=== PATIENT | male | born 1975 | race Hispanic/Latino ===

== ENCOUNTER 2020-07-20 03:18 | Inpatient (IN) | payer OTHER ==
[2020-07-20] VITALS (26 sets, daily range): BP systolic 115–168; BP diastolic 62–105
[~2020-07-20] VITALS: Ht 180.3 cm; Wt 129.3 kg
[2020-07-20] MEDS ORDERED: PANTOPRAZOLE 40 MG/VIAL IVP SCH (04:00)
[2020-07-20] MEDS ORDERED: PROCHLORPERAZINE EDISYLATE 10 MG/2 ML VIAL IVP SCH (04:00)
[2020-07-20] MEDS ORDERED: ONDANSETRON HCL 4 MG/2 ML VIAL IVP SCH (04:00)
[2020-07-20 04:11] LABS: APPEARANCE,URINE Clear (CLEAR); BILIRUBIN,URINE Negative (NEGATIVE); COLOR,URINE Yellow (YELLOW); GLUCOSE, URINE (UA) Negative (NEGATIVE); KETONES,URINE Negative (NEGATIVE); LEUKOCYTE ESTERASE ,URINE Trace (NEGATIVE); NITRATE,URINE Negative (NEGATIVE); OCCULT BLOOD,URINE Negative (NEGATIVE); PROTEIN,URINE Negative (NEGATIVE); UROBILINOGEN,URINE 0.2 mg/dL (0.2-1.0)
[2020-07-20 04:18] LABS: BASOPHILS % (AUTO) 0.3 % (0.0-5.0); EOSINOPHILS % (AUTO) 1.8 % (0.0-8.0); HEMATOCRIT 46.9 % (42-54); LYMPHOCYTES % (AUTO) 17.3 % (21.0-51.0); MEAN CORPUSCULAR HEMOGLOBIN 30.2 pg (27.0-33.0); MEAN CORPUSCULAR HGB CONC 33.5 g/dL (32.0-36.0); MEAN CORPUSCULAR VOLUME 90.2 fL (79-99); MONOCYTES % (AUTO) 5.3 % (3.0-13.0); NEUTROPHILS % (AUTO) 74.8 % (40.0-77.0); PLATELET COUNT (AUTO) 272 K/uL (130-400); RED CELL DISTRIBUTION WIDTH 12.9 % (11.0-15.5); WHITE BLOOD COUNT (AUTO) 12.9 K/uL (4.8-10.8)
[2020-07-20 04:27] LABS: CREATININE 0.8 mg/dL (0.5-1.5); POTASSIUM 3.7 mmol/L (3.5-5.1)
[2020-07-20 04:31] LABS: BILIRUBIN,TOTAL 0.7 mg/dL (0.2-1.0)
[2020-07-20] MEDS: LACTATED RINGERS 1000ML 1,000 ML IV SCH ×2 (04:32→18:30)
[2020-07-20 04:33] LABS: BACTERIA,URINE Rare /HPF (None Seen); RBC,URINE 0-1 /HPF (0-1); SQUAMOUS EPITHELIAL CELL,UR 0-2 /HPF (0-2)
[2020-07-20] MEDS ORDERED: IOHEXOL 350 MG/ML 100ML INFUS..BTL IV ONE (05:57)
[2020-07-20] MEDS ORDERED: ZOSYN 3.375GM+NS 50ML 50 ML IV SCH (06:45)
[2020-07-20] MEDS ORDERED: SODIUM CHLORIDE 0.9% 100 ML IV ONE (06:54)
[2020-07-20] MEDS: MORPHINE 2 MG SYG (2MG/1ML) IVP SCH ×2 (07:06→16:16)
[2020-07-20] MEDS: SODIUM CHLORIDE 0.9% 1000ML 1,000 ML IV SCH ×3 (07:15→21:35)
[2020-07-20] MEDS ORDERED: LACTULOSE 20 GM/30 ML UDCUP PO PRN (07:15)
[2020-07-20] MEDS ORDERED: ONDANSETRON HCL 4 MG/2 ML VIAL IV PRN (07:15)
[2020-07-20] MEDS ORDERED: ACETAMINOPHEN 325 MG TAB PO PRN ×2 (07:15)
[2020-07-20] MEDS ORDERED: ENOXAPARIN SODIUM 40 MG/0.4 ML SYRINGE SQ SCH (09:00)
[2020-07-20] MEDS: FAMOTIDINE/PF 20 MG/2 ML VIAL IV SCH ×2 (09:00→19:59)
[2020-07-20] MEDS ORDERED: SODIUM CHLORIDE 0.9% 1000ML 1,000 ML IV ONE (09:48)
[2020-07-20] MEDS: MORPHINE 2 MG SYG (2MG/1ML) IV PRN ×3 (11:38→20:17)
[2020-07-20] MEDS: ZOSYN 3.375GM+NS 50ML 50 ML IV SCH ×2 (16:12→21:35)
[2020-07-20] MEDS ORDERED: SUCCINYLCHOLINE CHLORIDE 20 MG/ML 10 ML VIAL ONE (17:13)
[2020-07-20] MEDS ORDERED: DEXAMETHASONE SOD PHOSPHATE 10MG/ML 1ML VIAL ONE (17:13)
[2020-07-20] MEDS ORDERED: LIDOCAINE PF 100MG/5ML (2%) SYRINGE 5ML ONE (17:13)
[2020-07-20] MEDS ORDERED: ONDANSETRON HCL 4 MG/2 ML VIAL ONE (17:16)
[2020-07-20] MEDS ORDERED: MIDAZOLAM HCL 1 MG/ML 2ML VIAL ONE (17:16)
[2020-07-20] MEDS ORDERED: PROPOFOL 10 MG/ML 20ML VIAL IV ONE (17:17)
[2020-07-20] MEDS ORDERED: ROCURONIUM 10MG/1ML SYR 10 MG/ML ML ONE (17:17)
[2020-07-20] MEDS ORDERED: NEOSTIGMINE 5MG/5ML SYR IV ONE (17:17)
[2020-07-20] MEDS ORDERED: GLYCOPYRROLATE 1 MG/5 ML SYRINGE ONE (17:17)
[2020-07-20] MEDS ORDERED: FENTANYL CITRATE PF 50 MCG/1 ML 2ML VIAL ONE ×2 (17:18→17:46)
[2020-07-20] MEDS ORDERED: BUPIVACAINE/PF 0.5% 30ML VIAL ONE (18:01)
[2020-07-20] MEDS ORDERED: MORPHINE 4 MG SYG (4MG/1ML) IV PRN (21:30)
[2020-07-21] MEDS: MORPHINE 2 MG SYG (2MG/1ML) IV PRN (03:10)
[2020-07-21 04:00] VITALS: BP 118/69
[2020-07-21] MEDS: ZOSYN 3.375GM+NS 50ML 50 ML IV SCH (05:00)
[2020-07-21 05:25] LABS: BASOPHILS % (AUTO) 0.1 % (0.0-5.0); EOSINOPHILS % (AUTO) 1.9 % (0.0-8.0); HEMATOCRIT 44.5 % (42-54); LYMPHOCYTES % (AUTO) 11.4 % (21.0-51.0); MEAN CORPUSCULAR HEMOGLOBIN 29.6 pg (27.0-33.0); MEAN CORPUSCULAR HGB CONC 32.4 g/dL (32.0-36.0); MEAN CORPUSCULAR VOLUME 91.6 fL (79-99); MONOCYTES % (AUTO) 2.8 % (3.0-13.0); NEUTROPHILS % (AUTO) 83.4 % (40.0-77.0); PLATELET COUNT (AUTO) 245 K/uL (130-400); RED BLOOD CELL COUNT(AUTO) 4.86 MIL/uL (4.50-6.20); WHITE BLOOD COUNT (AUTO) 9.8 K/uL (4.8-10.8)
[2020-07-21 05:44] LABS: CREATININE 0.8 mg/dL (0.5-1.5)
[2020-07-21 08:20] VITALS: BP 122/75
[2020-07-21] MEDS ORDERED: ASPIRIN 325 MG TABLET PO SCH (09:00)
[2020-07-21 11:29] VITALS: BP 133/77
== END 2020-07-21 13:45 | disposition home or self-care (01) | DRG 343 ==
LOC: EDH 03:18 → EDHIP 07:14 → 3AH 10:55
PROVIDERS: ADMIT Internal Medicine; ATTEND Internal Medicine
PROC: 0DTJ4ZZ Resection of Appendix, Percutaneous Endoscopic Approach (ICD-10-PCS; principal; 2020-07-20 13:45)
DX: K35.80 Unspecified acute appendicitis (principal); I10 Essential (primary) hypertension; D72.829 Elevated white blood cell count, unspecified
CPT/HCPCS: 36415; 74177; 80048; 80053; 81001; 83690; 84484; 85025; A4344; C9113; G0378; J0330; J0780; J1100; J1650; J2001; J2250; J2405; J2543; J2704; J2710; J3010; J3490; J7030; J7120; Q9967

== ENCOUNTER → 2020-07-22 | Outpatient (CLI) | payer OTHER ==
[2020-07-22 11:49] LABS: BASOPHILS % (AUTO) 0.2 % (0.0-5.0); EOSINOPHILS % (AUTO) 0.8 % (0.0-8.0); HEMATOCRIT 46.5 % (42-54); LYMPHOCYTES % (AUTO) 38.5 % (21.0-51.0); MEAN CORPUSCULAR HEMOGLOBIN 30.3 pg (27.0-33.0); MEAN CORPUSCULAR HGB CONC 32.9 g/dL (32.0-36.0); MEAN CORPUSCULAR VOLUME 92.1 fL (79-99); MONOCYTES % (AUTO) 6.7 % (3.0-13.0); NEUTROPHILS % (AUTO) 53.4 % (40.0-77.0); PLATELET COUNT (AUTO) 264 K/uL (130-400); RED BLOOD CELL COUNT(AUTO) 5.05 MIL/uL (4.50-6.20); RED CELL DISTRIBUTION WIDTH 13.4 % (11.0-15.5); WHITE BLOOD COUNT (AUTO) 9.8 K/uL (4.8-10.8)
[2020-07-22 11:56] LABS: HEMOGLOBIN A1C 6.3 % (4.0-6.0)
[2020-07-22 13:00] LABS: ALBUMIN 3.8 g/dL (3.5-5.0); BILIRUBIN,TOTAL 0.6 mg/dL (0.2-1.0); CREATININE 0.9 mg/dL (0.5-1.5); POTASSIUM 3.9 mmol/L (3.5-5.1); TOTAL PROTEIN, SERUM 7.8 g/dL (6.0-8.3)
== END | disposition home or self-care (01) ==
LOC: LAB 10:57
PROVIDERS: ATTEND Family Medicine
DX: I10 Essential (primary) hypertension (principal)
CPT/HCPCS: 36415; 80053; 80061; 82043; 83036; 85025

== ENCOUNTER → 2021-06-23 | Outpatient (CLI) | payer OTHER ==
[2021-06-23 08:26] LABS: BASOPHILS % (AUTO) 0.4 % (0.0-5.0); EOSINOPHILS % (AUTO) 3.1 % (0.0-8.0); HEMATOCRIT 48.7 % (42-54); MEAN CORPUSCULAR HEMOGLOBIN 28.8 pg (27.0-33.0); MEAN CORPUSCULAR HGB CONC 31.8 g/dL (32.0-36.0); MEAN CORPUSCULAR VOLUME 90.5 fL (79-99); MONOCYTES % (AUTO) 6.7 % (3.0-13.0); NEUTROPHILS % (AUTO) 50.7 % (40.0-77.0); PLATELET COUNT (AUTO) 227 K/uL (130-400); RED BLOOD CELL COUNT(AUTO) 5.38 MIL/uL (4.50-6.20); RED CELL DISTRIBUTION WIDTH 13.2 % (11.0-15.5)
[2021-06-23 08:56] LABS: ALBUMIN 3.6 g/dL (3.5-5.0); BILIRUBIN,TOTAL 0.7 mg/dL (0.2-1.0); CREATININE 0.7 mg/dL (0.5-1.5); THYROID STIMULATING HORMONE 2.23 uIU/mL (0.36-3.74); TOTAL PROTEIN, SERUM 7.5 g/dL (6.0-8.3)
== END | disposition home or self-care (01) ==
LOC: LAB 10:00
PROVIDERS: ATTEND Family Medicine
DX: I10 Essential (primary) hypertension (principal); R73.03 Prediabetes
CPT/HCPCS: 36415; 80053; 80061; 83036; 84443; 85025

== ENCOUNTER → 2023-03-14 | Outpatient (CLI) | payer OTHER ==
[2023-03-14 12:23] LABS: BASOPHILS # (AUTO) 0.04 K/uL (0.00-0.20); BASOPHILS % (AUTO) 0.3 % (0.0-5.0); EOSINOPHILS # (AUTO) 0.19 K/uL (0.00-0.70); EOSINOPHILS % (AUTO) 1.6 % (0.0-8.0); HEMATOCRIT 49.1 % (42-54); IMMATURE GRANULOCYTE ABSOLUTE 0.04 K/uL (0-1); LYMPHOCYTES # (AUTO) 5.5 K/uL (1.0-4.8); LYMPHOCYTES % (AUTO) 46.9 % (21.0-51.0); MEAN CORPUSCULAR HEMOGLOBIN 30.1 pg (27.0-33.0); MEAN CORPUSCULAR VOLUME 91.1 fL (79-99); MONOCYTES # (AUTO) 0.9 K/uL (0.1-1.0); MONOCYTES % (AUTO) 7.3 % (3.0-13.0); NEUTROPHILS # (AUTO) 5.1 K/uL (1.8-7.7); NEUTROPHILS % (AUTO) 43.6 % (40.0-77.0); PLATELET COUNT (AUTO) 261 K/uL (130-400); RED BLOOD CELL COUNT(AUTO) 5.39 MIL/uL (4.50-6.20); RED CELL DISTRIBUTION WIDTH 13.2 % (11.0-15.5); WHITE BLOOD COUNT (AUTO) 11.6 K/uL (4.8-10.8)
[2023-03-14 12:32] LABS: HEMOGLOBIN A1C 6.4 % (4.0-6.0)
[2023-03-14 12:35] LABS: APPEARANCE,URINE CLEAR (CLEAR); BILIRUBIN,URINE NEGATIVE (NEGATIVE); COLOR,URINE LIGHT-YELLOW (YELLOW); GLUCOSE, URINE (UA) NEGATIVE (NEGATIVE); KETONES,URINE NEGATIVE (NEGATIVE); LEUKOCYTE ESTERASE ,URINE NEGATIVE Leu/uL (NEGATIVE); NITRATE,URINE NEGATIVE (NEGATIVE); OCCULT BLOOD,URINE NEGATIVE (NEGATIVE); PROTEIN,URINE NEGATIVE (NEGATIVE); UROBILINOGEN,URINE 0.2 mg/dL (0.2-1.0)
[2023-03-14 12:37] LABS: ADD UA MICROSCOPIC NO
[2023-03-14 12:57] LABS: ALBUMIN 3.9 g/dL (3.5-5.0); BILIRUBIN,TOTAL 0.7 mg/dL (0.2-1.0); CREATININE 0.7 mg/dL (0.5-1.5); POTASSIUM 3.5 mmol/L (3.5-5.1); THYROID STIMULATING HORMONE 1.75 uIU/mL (0.36-3.74)
[2023-03-14 13:38] LABS: LYMPHOCYTES % (MANUAL) 48 % (22-44); MONOCYTES % (MANUAL) 8 % (2-9); SEGMENTED NEUTROPHILS % 44 % (40-70); TOTAL CELLS COUNTED 100
[2023-03-14 13:39] LABS: MAN.DIFF COMMENT-IMPRESSION MANUAL DIFFERENTIAL; PLATELET MORPHOLOGY COMMENT ADEQUATE; WBC MORPHOLOGY NORMAL
== END | disposition home or self-care (01) ==
LOC: LAB 11:38
PROVIDERS: ATTEND Family Medicine
DX: I10 Essential (primary) hypertension (principal); R73.03 Prediabetes
CPT/HCPCS: 36415; 80053; 80061; 81003; 82043; 82570; 83036; 84443; 85025

== ENCOUNTER 2024-02-26 17:55 | Emergency (ER) | payer OTHER ==
[~2024-02-26] VITALS: Ht 177.8 cm; Wt 136.1 kg
--- NOTE | 2024-02-26 18:39 | ERN ---
ED Note History of Present Illness Stated Complaint: WOUND CARE, ABDOMINAL PAIN Chief Complaint: Abdominal Pain Time Seen by MD: 17:56 Time Seen by Midlevel: 17:56 Dictation: The patient is a 48-year-old male with history of appendectomy who presents to the emergency department with complaints of periumbilical pain onset 3:00 p.m.. Patient reports pain is worse with movement. Reports heart mass to periumbilical area. Denies any nausea, vomiting, diarrhea, fevers, constipation. Last bowel movement was a this morning. Allergies: Coded Allergies: No Known Drug Allergies (Unverified Allergy, Unknown, 07/20/20) Home Meds No Active Prescriptions or Reported Meds Past Medical History Past Medical History: High Cholesterol, Hypertension Additional Past Medical Hx: HYPERTENSION Surgical History: Appendectomy Social History: Smokers, ETOH RN Note Reviewed/Agreed w/PFSH: Yes Review of System Dictation Constitutional: Negative for fever,chills, and weight loss Eyes: Negative for injury, pain,redness, and discharge ENT: Negative for injury,pain or swelling Cardiovascular: Negative for chest pain, palpitations, and edema Respiratory: Negative for shortness of breath, cough, and wheezing, Abdomen/GI: Negative for nausea, vomiting, diarrhea, and constipation positive for abdominal pain Back: Negative for injury and pain : Negative for injury, bleeding and discharge MS/Extremity: Negative for injury and deformity Skin: Negative for rash, and discoloration Neuro: Negative for headache, weakness, numbness, tingling, and seizure Psych: Negative for suicide ideation, homicidal ideation, and hallucinations Initial Vital Sign VS Vital Signs Date Time Temp Pulse Resp B/P (MAP) Pulse Ox O2 Delivery O2 Flow Rate FiO2 02/26/24 18:27 99.0 110 20 156/97 96 Room Air 0 Physical Exam Dictation Vital Signs reviewed General Appearance: Alert, oriented x 3, no acute distress, well developed, nourished. Head and Face: non-traumatic. Eyes: PERRL, pink conjunctivas, eyelid no trauma, anterior chamber with arcus senilis. Ears: Pinnas intact and no signs of trauma or erythema ear canals clear and no discharge TM no erythema Nose: No discharge, no bleeding. Oropharynx: Mouth normal, tongue pink. pharynx clear,no erythema, tonsils no exudates, no abscesses noted, mucous membrane moist Neck: Supple, non-tender, no thyromegaly, no masses, no JVD, no bruits Breast:Deferred Chest:No tenderness, no crepitus, no paradoxical movement, no retractions Lungs:Clear, well-ventilated, symmetric, no rales, no wheezing, no rhonchi, no stridor, good breath sounds bilaterally Heart: Regular rate, regular rhythm, no murmur, no gallops Vascular: no peripheral edema, Abdomen: Soft, positive bowel sounds, nondistended, no guarding, Periumbilical tenderness, no rebound, julissa umbilical maury, no hepatomegaly, no splenomegaly, no Peng's sign, periumbilical hernia reducible Rectal: Deferred Genital: Deferred Neurological: Normal speech, motor function intact, sensory function intact Musculoskeletal: Neck nontender, full range of motion, back nontender, full range of motion, Extremities: nontender, full range of motion Skin: Color pink, dry, no turgor, no rash, no lacerations, no abrasions, no contusions. Lymphatic: Deferred Results (Laboratory/Radiology) Laboratory/Radiology Laboratory Tests Test 02/26/24 19:12 02/26/24 19:13 White Blood Count 9.6 K/uL (4.8-10.8) Red Blood Count 4.90 MIL/uL (4.50-6.20) Hemoglobin 14.9 g/dL (14.0-18.0) Hematocrit 44.6 % (42-54) Mean Corpuscular Volume 91.0 fL (79-99) Mean Corpuscular Hemoglobin 30.4 pg (27.0-33.0) Mean Corpuscular Hemoglobin Concent 33.4 g/dL (32.0-36.0) Red Cell Distribution Width 13.0 % (11.0-15.5) Platelet Count 251 K/uL (130-400) Mean Platelet Volume 9.2 fL (7.5-10.5) Immature Granulocyte % (Auto) 0.5 % (0-1) Neutrophils (%) (Auto) 59.5 % (40.0-77.0) Lymphocytes (%) (Auto) 32.2 % (21.0-51.0) Monocytes (%) (Auto) 6.0 % (3.0-13.0) Eosinophils (%) (Auto) 1.5 % (0.0-8.0) Basophils (%) (Auto) 0.3 % (0.0-5.0) Neutrophils # (Auto) 5.7 K/uL (1.8-7.7) Lymphocytes # (Auto) 3.1 K/uL (1.0-4.8) Monocytes # (Auto) 0.6 K/uL (0.1-1.0) Eosinophils # (Auto) 0.14 K/uL (0.00-0.70) Basophils # (Auto) 0.03 K/uL (0.00-0.20) Absolute Immature Granulocyte (auto 0.05 K/uL (0-1) Nucleated Red Blood Cells 0.0 % (0.0-0.19) Sodium Level 135 mmol/L (136-145) L Potassium Level 3.6 mmol/L (3.5-5.1) Chloride Level 99 mmol/L (101-111) L Carbon Dioxide Level 29 mmol/L (21-32) Blood Urea Nitrogen 15 mg/dL (7-18) Creatinine 0.9 mg/dL (0.5-1.3) Glomerular Filtration Rate Calc 106 mL/min (>90) Random Glucose 173 mg/dL (70-105) H Total Calcium 8.8 mg/dL (8.5-10.1) Lipase 24 U/L (16-77) Urine Color LIGHT-YELLOW (YELLOW) Urine Appearance CLEAR (CLEAR) Urine pH 6.0 (5.0-8.0) Urine Specific [place] 1.023 (1.001-1.031) Urine Protein NEGATIVE mg/dL (NEGATIVE) Urine Glucose (UA) 30 mg/dL (NEGATIVE) H Urine Ketones NEGATIVE mg/dL (NEGATIVE) Urine Occult Blood NEGATIVE (NEGATIVE) Urine Nitrate NEGATIVE (NEGATIVE) Urine Bilirubin NEGATIVE mg/dL (NEGATIVE) Urine Urobilinogen 0.2 mg/dL (0.2-1.0) Urine Leukocyte Esterase NEGATIVE Luis/uL Urine RBC 0-1 /HPF (0-1) Urine WBC 0-1 /HPF (0-1) Urine Squamous Epithelial Cells RARE /HPF (0-2) Urine Bacteria None /HPF (None Seen) REASON: periumbilial Abdominal Pain ORDERING PHYSICIAN: MIGUEL YATES PROCEDURE: ABD PEL W - CT ABDOMEN/PELVIS W/CONTRAST CT ABDOMEN/PELVIS W/CONTRAST HISTORY: Periumbilical Abdominal Pain TECHNIQUE: CT ABDOMEN/PELVIS W/CONTRAST Omnipaque contrast was used. Oral contrast was not given. Coronal and sagittal reformats were obtained. CT was performed with one or more of the following dose reduction techniques: Automated exposure control, adjustment of the mA and/or kV according to the patient's size, or use of the iterative reconstruction technique. Comparison: None. FINDINGS: No pulmonary consolidation or pleural effusion is seen. There is hepatic steatosis. No calcified gallstone is seen. The spleen, pancreas, and adrenal glands are within normal limits. No hydronephrosis. The urinary bladder is partially distended. 4 mm nonobstructing calculus in the upper pole of the left kidney. Small right renal cysts are seen. Heterogeneous prostate with parenchymal calcifications. Prominent fecal material is seen in the colon suggestive of constipation. Scattered diverticulosis coli without evidence of acute diverticulitis. There is no CT evidence of acute appendicitis. Fat-containing periumbilical hernia is seen with the hernia sac measuring 4.9 cm. There is mild stranding in the herniated fat which may may represent strangulation the proper clinical setting. No free abdominal air is seen. Degenerative changes of the spine. Visualized aorta is normal in caliber. IMPRESSION: 1. Prominent fecal material is seen in the colon suggestive of constipation. Scattered diverticulosis coli without evidence of acute diverticulitis. There is no CT evidence of acute appendicitis. 2. Fat-containing periumbilical hernia is seen with the hernia sac measuring 4.9 cm. There is mild stranding in the herniated fat which may may represent strangulation the proper clinical setting. Labs Reviewed?: Yes ED Course ED Course Orders Procedure Category Date Status Time Cbc With Differential LAB 02/26/24 Complete 18:21 Urinalysis Profile LAB 02/26/24 Complete 18:21 0.9%Nacl 1000ml (Ns PHA 02/26/24 Complete 1000ml) 18:30 Morphine 4mg Syg PHA 02/26/24 Complete (Morphine 4mg Syg) 18:30 Ondansetron 4mg Inj PHA 02/26/24 Complete (Zofran 4mg Inj) 18:30 Lipase LAB 02/26/24 Complete 18:21 Basic Metabolic Panel LAB 02/26/24 Complete 18:21 Ct Abdomen/Pelvis CT 02/26/24 Resulted W/Contrast 19:38 Iohexol (Omnipaque) PHA 02/26/24 Complete 20:29 Current Medications Medications (Trade) Dose Ordered Sig/Ángel Route PRN Reason Start Time Stop Time Status Last Admin Dose Admin Iohexol (Omnipaque) 35,000 mg STK-MED ONCE IV 02/26/24 20:29 02/26/24 20:29 DC Morphine Sulfate (morPHINE 4MG SYG) 4 mg ONCE ONCE IVP 02/26/24 18:30 02/26/24 18:31 DC Ondansetron HCl (zoFRAN 4MG INJ) 4 mg ONCE ONCE IVP 02/26/24 18:30 02/26/24 18:31 DC Sodium Chloride 1,000 ml @ 0 mls/hr ONCE ONCE IV 02/26/24 18:30 02/26/24 18:31 DC Vital Signs Date Time Temp Pulse Resp B/P (MAP) Pulse Ox O2 Delivery O2 Flow Rate FiO2 02/26/24 18:27 99.0 110 20 156/97 96 Room Air 0 Medical Decision Making MDM The patient is a 48-year-old male with history of appendectomy who presents to the emergency department with complaints of periumbilical pain onset 3:00 p.m.. Patient reports pain is worse with movement. Reports heart mass to periumbilical area. Denies any nausea, vomiting, diarrhea, fevers, constipation. Last bowel movement was a this morning. CBC showed no leukocytosis, no anemia, chemistry showed mild hypochloremia, mild hyponatremia, normal renal function, urinalysis unremarkable. CT abdomen showed a periumbilical hernia. Hernia was successfully reduced in ER. Discussed case with Dr. Lujan who suggest if patient hernia can not be reduced then patient can follow up as outpatient and evaluated patient and confirmed reduction of hernia. Patient reports improvement in pain. Patient with no nausea or vomiting. Improved abdominal pain. Will be discharged to follow up with Dr. Shepherd who performed his appendectomy. Differential diagnosis: Abdominal hernia, pancreatitis, constipation, electrolyte imbalance Need for hospitalization: Patient does not meet criteria for hospitalization. There are no social concerns with this patient. DX & DISP Disposition: Discharge Departure Impression: Primary Impression: Periumbilical hernia Additional Impressions: Abdominal pain, Left renal stone, Constipation Condition: Stable Scripts Lactulose (Lactulose) 10 Gram/15 Ml Solution 30 ML PO DAILY for constipation, #900 ML 0 Refills Prov: MIGUEL YATES 02/26/24 Additional Instructions: Please follow up with your PCP and general surgery as soon as possible. If symptoms worsen you develop severe abdominal pain, nausea and vomiting, please return to ER. FOLLOW-UP WITH PRIMARY CARE PROVIDER IN 1 TO 2 DAYS. TAKE MEDICATIONS DIRECTED HERE IN THE EMERGENCY ROOM. OKAY TO CONTINUE HOME MEDICATIONS UNLESS OTHERWISE DISCUSSED DURING YOUR VISIT IN THE EMERGENCY ROOM TODAY. RETURN TO YOUR NEAREST EMERGENCY ROOM IF SYMPTOMS WORSEN OR IF THERE IS NO IMPROVEMENT. CALL 911 IF YOU NEED IMMEDIATE ASSISTANCE. TAKE TYLENOL OR MOTRIN [id number] NEEDED AND IF NO CONTRAINDICATIONS ARE PRESENT. INCREASE ORAL HYDRATION. A WOUND CULTURE OR URINE CULTURE WAS ORDERED HERE IN THE EMERGENCY ROOM DEPARTMENT PLEASE FOLLOW-UP WITH PRIMARY CARE PROVIDER AND ADVISE THEM TO GET REPEAT PORTS FROM OUR FACILITY. IF YOU HAD ANY YAMINI WRAP/SPLINTS THAT WERE APPLIED HERE, PLEASE DO NOT REMOVE THEM UNTIL YOU SEE YOUR PRIMARY CARE OR SPECIALTY. Referrals: ROMULO FARMER MD (PCP) SELAM SHEPHERD MD Time of Disposition: 21:49 I have examined patient, & reviewed all documents, & agreed W/ the Diagnosis, and Plan MIGUEL YATES Feb 26, 2024 18:39
[2024-02-26 19:22] LABS: APPEARANCE,URINE CLEAR (CLEAR); BILIRUBIN,URINE NEGATIVE (NEGATIVE); COLOR,URINE LIGHT-YELLOW (YELLOW); GLUCOSE, URINE (UA) 30 mg/dL (NEGATIVE); KETONES,URINE NEGATIVE (NEGATIVE); LEUKOCYTE ESTERASE ,URINE NEGATIVE Leu/uL (NEGATIVE); NITRATE,URINE NEGATIVE (NEGATIVE); OCCULT BLOOD,URINE NEGATIVE (NEGATIVE); PROTEIN,URINE NEGATIVE (NEGATIVE); UROBILINOGEN,URINE 0.2 mg/dL (0.2-1.0)
[2024-02-26 19:26] LABS: BASOPHILS # (AUTO) 0.03 K/uL (0.00-0.20); BASOPHILS % (AUTO) 0.3 % (0.0-5.0); EOSINOPHILS # (AUTO) 0.14 K/uL (0.00-0.70); EOSINOPHILS % (AUTO) 1.5 % (0.0-8.0); HEMATOCRIT 44.6 % (42-54); IMMATURE GRANULOCYTE ABSOLUTE 0.05 K/uL (0-1); LYMPHOCYTES # (AUTO) 3.1 K/uL (1.0-4.8); LYMPHOCYTES % (AUTO) 32.2 % (21.0-51.0); MEAN CORPUSCULAR HEMOGLOBIN 30.4 pg (27.0-33.0); MEAN CORPUSCULAR HGB CONC 33.4 g/dL (32.0-36.0); MONOCYTES # (AUTO) 0.6 K/uL (0.1-1.0); NEUTROPHILS # (AUTO) 5.7 K/uL (1.8-7.7); NEUTROPHILS % (AUTO) 59.5 % (40.0-77.0); PLATELET COUNT (AUTO) 251 K/uL (130-400); WHITE BLOOD COUNT (AUTO) 9.6 K/uL (4.8-10.8)
[2024-02-26 19:32] LABS: CREATININE 0.9 mg/dL (0.5-1.3); POTASSIUM 3.6 mmol/L (3.5-5.1)
[2024-02-26 19:38] LABS: ADD UA MICROSCOPIC YES
[2024-02-26 19:39] LABS: MUCUS,URINE RARE LPF (None Seen); RBC,URINE 0-1 /HPF (0-1); SQUAMOUS EPITHELIAL CELL,UR RARE /HPF (0-2); WBC,URINE 0-1 /HPF (0-1)
[2024-02-26] MEDS ORDERED: IOHEXOL 350 MG/ML 100ML INFUS..BTL IV ONE (20:29)
--- NOTE | 2024-02-26 21:05 | HMCIMG ---
CT ABDOMEN/PELVIS W/CONTRAST HISTORY: Periumbilical Abdominal Pain TECHNIQUE: CT ABDOMEN/PELVIS W/CONTRAST Omnipaque contrast was used. Oral contrast was not given. Coronal and sagittal reformats were obtained. CT was performed with one or more of the following dose reduction techniques: Automated exposure control, adjustment of the mA and/or kV according to the patient's size, or use of the iterative reconstruction technique. Comparison: None. FINDINGS: No pulmonary consolidation or pleural effusion is seen. There is hepatic steatosis. No calcified gallstone is seen. The spleen, pancreas, and adrenal glands are within normal limits. No hydronephrosis. The urinary bladder is partially distended. 4 mm nonobstructing calculus in the upper pole of the left kidney. Small right renal cysts are seen. Heterogeneous prostate with parenchymal calcifications. Prominent fecal material is seen in the colon suggestive of constipation. Scattered diverticulosis coli without evidence of acute diverticulitis. There is no CT evidence of acute appendicitis. Fat-containing periumbilical hernia is seen with the hernia sac measuring 4.9 cm. There is mild stranding in the herniated fat which may may represent strangulation the proper clinical setting. No free abdominal air is seen. Degenerative changes of the spine. Visualized aorta is normal in caliber. IMPRESSION: 1. Prominent fecal material is seen in the colon suggestive of constipation. Scattered diverticulosis coli without evidence of acute diverticulitis. There is no CT evidence of acute appendicitis. 2. Fat-containing periumbilical hernia is seen with the hernia sac measuring 4.9 cm. There is mild stranding in the herniated fat which may may represent strangulation the proper clinical setting.
[2024-02-26] MEDS ORDERED: LACT-441 PO (21:53)
[2024-02-26] MEDS: ondanSETRON 4MG INJ IVP ONE (22:06)
[2024-02-26] MEDS: morPHINE 4 MG SYG IVP ONE (22:07)
[2024-02-26] MEDS: 0.9%NACL 1000ML 1,000 ML IV ONE (22:07)
[2024-02-26 22:42] VITALS: BP 155/94; PULSE 92; RESP 20; TEMP 98.9; O2SAT 98
== END 2024-02-26 22:46 | disposition home or self-care (01) ==
LOC: EDH 17:55
DX: K42.9 Umbilical hernia without obstruction or gangrene (principal); N20.0 Calculus of kidney; K59.00 Constipation, unspecified; R10.33 Periumbilical pain; E78.00 Pure hypercholesterolemia, unspecified; I10 Essential (primary) hypertension; F17.200 Nicotine dependence, unspecified, uncomplicated; Z90.49 Acquired absence of other specified parts of digestive tract
CPT/HCPCS: 99285; 74177; 96374; 96375; 80048; 83690; 85025; 81001; 36415; J7030; J2405; J2270; Q9967

== ENCOUNTER → 2024-12-04 | Outpatient (CLI) | payer OTHER ==
[~2024-12-04] MED LIST: LACT-441 PO
[2024-12-04 08:05] LABS: IMMATURE GRANULOCYTE ABSOLUTE 0.03 K/uL (0-1); NUCLEATED RED BLOOD CELLS 0.0 % (0.0-0.19); PLATELET COUNT (AUTO) 206 K/uL (130-400); RED BLOOD CELL COUNT(AUTO) 5.21 MIL/uL (4.50-6.20); RED CELL DISTRIBUTION WIDTH 13.2 % (11.0-15.5); WHITE BLOOD COUNT (AUTO) 7.0 K/uL (4.8-10.8)
[2024-12-04 08:44] LABS: ASPARTATE AMINOTRANSFERASE 71.0 U/L (10-37); CREATININE 0.7 mg/dL (0.5-1.3); GLOMERULAR FILTR. RATE CALC 114.0 mL/min (>90); GLUCOSE,RANDOM 318.0 mg/dL (70-105); LDL DIRECT 88.0 mg/dL (0-99); SODIUM SERUM 135.0 mmol/L (136-145); TOTAL PROTEIN, SERUM 7.5 g/dL (6.0-8.3); UREA NITROGEN, BLOOD 9.0 mg/dL (7-18)
== END | disposition home or self-care (01) ==
LOC: ENDO 07:21
PROVIDERS: ATTEND Family Medicine
DX: I10 Essential (primary) hypertension (principal); E78.2 Mixed hyperlipidemia; E55.9 Vitamin D deficiency, unspecified; R53.83 Other fatigue; Z83.42 Family history of familial hypercholesterolemia; Z83.3 Family history of diabetes mellitus
CPT/HCPCS: 36415; 80053; 80061; 82043; 82306; 82570; 83036; 84439; 84443; 85025; 86140; 87086